=== PATIENT | female | born 1955 | race American Indian/Alaskan Native ===

== ENCOUNTER 2016-09-29 13:44 | Emergency (ER) | payer OTHER ==
[2016-09-29 14:22] VITALS: BP 137/89
--- NOTE | 2016-09-29 17:56 | Emergency Department Report ---
ED Back Pain/Injury HPI - General Chief Complaint: Back Pain/Injury Stated Complaint: RUPTURED DISC/FLARE UP Time Seen by Provider: 09/29/16 17:56 Source: patient Limitations: Physical Limitation - History of Present Illness Initial Comments: 61-year-old female past medical history sciatica, lumbar radiculopathy presents with complaint of acute on chronic pain in her lower back. Patient denies any recent falls denies any trauma. Patient states that her lower back is aching. Denies any fevers or chills. Denies any bladder or bowel incontinence or saddle paresthesias. Denies any increased urinary frequency or dysuria follow smelling urine. States that the pain she is feeling is consistent with her chronic long-standing back pain. Patient states that she has an appointment to see a spine surgeon this upcoming week on Saturday. On exam patient is ambulatory states she is a cane to steady herself. States pain is currently 8 out of 10 in her lower back. States it occasionally radiates down her right leg with some associated tingling sensation. Patient states she has had chronic back pain since 1982 MD Complaint: back pain -: year(s) Similar Symptoms Previously: Yes Place: home Radiation: buttocks, right leg Severity: moderate Severity scale (0 -10): 8 Quality: sharp Consistency: intermittent Improves With: immobilization Worsens With: movement Associated Symptoms: denies other symptoms - Related Data Previous Rx's Medication Instructions Recorded Last Taken Type Cephalexin [Keflex] 500 mg PO BID #14 capsule 07/27/14 Unknown Rx Acetaminophen/Codeine [Tylenol 1 tab PO Q6H PRN #5 tab 09/29/16 Unknown Rx /Codeine # 3 tab] Naproxen [Naprosyn TAB] 500 mg PO BID PRN #20 tablet 09/29/16 Unknown Rx Allergies Allergy/AdvReac Type Severity Reaction Status Date / Time No Known Allergies Allergy Unverified 07/27/14 07:44 ED Review of Systems ROS: Stated complaint: RUPTURED DISC/FLARE UP Other details as noted in HPI Constitutional: denies: chills, fever Eyes: denies: eye pain, eye discharge, vision change ENT: denies: ear pain, throat pain Respiratory: denies: cough, shortness of breath, wheezing Cardiovascular: denies: chest pain, palpitations Endocrine: no symptoms reported Gastrointestinal: denies: abdominal pain, nausea, diarrhea Genitourinary: denies: urgency, dysuria, discharge Musculoskeletal: back pain (chronic lower back pain). denies: joint swelling, arthralgia Skin: denies: rash, lesions Neurological: denies: headache, weakness, paresthesias Psychiatric: denies: anxiety, depression Hematological/Lymphatic: denies: easy bleeding, easy bruising ED Past Medical Hx - Past Medical History Previous Medical History?: Yes Hx Psychiatric Treatment: Yes (depression) Hx Asthma: Yes Additional medical history: ruptured disc - Surgical History Past Surgical History?: No - Social History Smoking Status: Former Smoker Substance Use Type: Alcohol, Non Opiate Pain, Prescribed - Medications Home Medications: Home Medications Medication Instructions Recorded Confirmed Last Taken Type Cephalexin [Keflex] 500 mg PO BID #14 capsule 07/27/14 Unknown Rx Acetaminophen/Codeine [Tylenol 1 tab PO Q6H PRN #5 tab 09/29/16 Unknown Rx /Codeine # 3 tab] Naproxen [Naprosyn TAB] 500 mg PO BID PRN #20 tablet 09/29/16 Unknown Rx ED Physical Exam - General Limitations: Physical Limitation General appearance: alert, in no apparent distress - Head Head exam: Present: atraumatic, normocephalic - Eye Eye exam: Present: normal appearance, PERRL, EOMI - ENT ENT exam: Present: mucous membranes moist - Neck Neck exam: Present: normal inspection - Respiratory Respiratory exam: Present: normal lung sounds bilaterally. Absent: respiratory distress - Cardiovascular Cardiovascular Exam: Present: regular rate, normal rhythm. Absent: systolic murmur, diastolic murmur, rubs, gallop - GI/Abdominal GI/Abdominal exam: Present: soft, normal bowel sounds - Rectal Rectal exam: Present: normal rectal tone (patient's rectal tone is intact on exam) - Extremities Exam Extremities exam: Present: normal inspection, full ROM, other (lower extremity strength 5 out of 5 on exam, patient is ambulatory, knee-jerk reflex intact bilaterally) - Back Exam Back exam: Present: normal inspection, paraspinal tenderness (lumbar paraspinal tenderness and no midline tenderness on palpation) - Expanded Back Exam Expanded Back exam: Positive Straight Leg Raise: Right, Left (positive at 30 both legs) - Neurological Exam Neurological exam: Present: alert, oriented X3, CN II-XII intact, abnormal gait (slightly antalgic gait due to back pain) - Psychiatric Psychiatric exam: Present: normal affect, normal mood - Skin Skin exam: Present: warm, dry, intact, normal color. Absent: rash ED Course Vital Signs 09/29/16 09/29/16 14:16 18:28 Temperature 98.1 F Pulse Rate 74 Respiratory 16 18 Rate Blood Pressure 137/89 O2 Sat by Pulse 100 Oximetry ED Medical Decision Making - Medical Decision Making A/P: Acute on chronic lower back pain, lumbar radiculopathy, sciatica 1-patient has no clinical signs of cauda equina or cord compression patient is fully ambulatory strength 5 out of 5 all extremities, distal lower extremity deep tendon reflexes intact, rectal tone is intact. Patient reports no saddle paresthesias and is able to control her bladder during and defecation. No reports of bladder or bowel dysfunction as per patient. 2-CT consistent with degenerative spinal disease at lumbar spine. 3-short course of naproxen and a few doses of Tylenol No. 3 when necessary for pain 4- patient states she has follow-up this week on Saturday with a spine surgeon. 5-I advised patient to return to the ED for saddle paresthesias, any bladder or bowel incontinence, any signs of paralysis or worsened lower back pain with inability to ambulate on her own. Patient states he understood my instructions. Critical care attestation.: If time is entered above; I have spent that time in minutes in the direct care of this critically ill patient, excluding procedure time. ED Disposition Clinical Impression: Lumbar radiculopathy, Back pain at L4-L5 level Disposition: TO HOME OR SELFCARE Is pt being admited?: No Does the pt Need Aspirin: No Condition: Stable Instructions: Lumbar Disc Herniation (ED), Sciatica (ED), Lumbar Radiculopathy (ED) Prescriptions: Acetaminophen/Codeine [Tylenol /Codeine # 3 tab] 1 tab PO Q6H PRN #5 tab PRN Reason: Pain Naproxen [Naprosyn TAB] 500 mg PO BID PRN #20 tablet PRN Reason: Pain Referrals: [facility] [Outside] - 3-5 Days LAURA RAJAN MD [Staff Physician] - 3-5 Days ULYSSES CHUNG MD [Staff Physician] - 3-5 Days Time of Disposition: 19:40
[2016-09-29] MEDS ORDERED: ZOFRAN ODT PO ONE (18:08)
[2016-09-29] MEDS ORDERED: NORCO 5/325 PO ONE (18:08)
--- NOTE | 2016-09-29 19:11 | Cat Scan Report ---
FINAL REPORT PROCEDURE: CT LUMBAR SPINE WO CON TECHNIQUE: Computerized axial tomography of the lumbar spine was performed from T12 to the sacrum without contrast material. HISTORY: severe deg. l-spine disease c/o back pain COMPARISON: No prior studies are available for comparison. FINDINGS: No pars defect or spondylolisthesis is seen. No compression fracture is seen. Minimal levoscoliosis is seen which is probably chronic given mild lateral osteophytes in the lower lumbar spine. There is abnormal appearance of the region of the distal duodenum that appears dilated. Correlation with CT of the abdomen using IV and oral contrast may be useful. L1-2: No significant abnormality. L2-3: Posterior element hypertrophy and mild disc bulge cause thecal sac effacement. L3-4: Mild disc bulge causes little central canal narrowing with slight thecal sac effacement. L4-5: Uncovertebral osteophytes and mild diffuse disc bulge are seen with mild posterior element hypertrophy. There is mild thecal sac effacement. L5-S1: No significant stenosis. Other: None. IMPRESSION: Mild disc bulges and areas of bony stenosis are seen without evidence of thecal sac compression. Abnormal appearance is seen of the duodenum which appears dilated in the descending section. Further evaluation with contrast-enhanced CT of the abdomen pelvis may be useful.
[2016-09-29] MEDS ORDERED: ANCEF IM ONE (19:29)
[2016-09-29] MEDS: TRIPLE ANTIBIOTIC TP ONE ×2 (19:38→19:43)
[2016-09-29] MEDS: XYLOCAINE TOPICAL 2% TP ONE ×2 (19:40→19:43)
== END 2016-09-29 19:58 | disposition home or self-care (01) ==
LOC: ED 13:44
DX: M54.16 Radiculopathy, lumbar region (principal); F32.9 Major depressive disorder, single episode, unspecified; J45.909 Unspecified asthma, uncomplicated; Z87.891 Personal history of nicotine dependence
CPT/HCPCS: 72131; Q0162